=== PATIENT | male | born 1995 | race Native Hawaiian/Other Pacific Islander ===

== ENCOUNTER 2018-01-29 21:05 | Emergency (ER) | payer OTHER ==
[~2018-01-29] VITALS: Ht 190.5 cm; Wt 181.0 kg
== END 2018-01-29 21:40 | disposition home or self-care (01) ==
LOC: ED 21:05
DX: K08.89 Other specified disorders of teeth and supporting structures (principal)
CPT/HCPCS: 99281

== ENCOUNTER 2022-04-23 18:32 | Emergency (ER) | payer OTHER ==
[~2022-04-23] VITALS: Ht 190.5 cm; Wt 184.2 kg
[2022-04-23 18:38] VITALS: TEMP 97.5
[2022-04-23 20:05] VITALS: BP 162/80
== END 2022-04-23 20:06 | disposition home or self-care (01) ==
LOC: ED 18:32
DX: K02.9 Dental caries, unspecified (principal)
CPT/HCPCS: 96372; 99283; J1885

== ENCOUNTER 2022-05-19 12:15 | Emergency (ER) | payer OTHER ==
[~2022-05-19] VITALS: Ht 190.5 cm; Wt 184.2 kg
[2022-05-19 15:04] VITALS: BP 150/89; TEMP 98
== END 2022-05-19 15:04 | disposition home or self-care (01) ==
LOC: ED 12:15
DX: K02.9 Dental caries, unspecified (principal)
CPT/HCPCS: 99282